=== PATIENT | female | born 1970 | race Caucasian/White ===

== ENCOUNTER 2017-01-04 18:02 | Emergency (ER) | payer OTHER ==
[~2017-01-04] VITALS: Ht 162.6 cm; Wt 45.0 kg
[~2017-01-04 18:02] MED LIST: DICL50TA3 PO; OMEP20TA PO; ROBA500T PO; SUCR1TAB PO
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
[2017-01-04 20:22] VITALS: BP 114/75; PULSE 55; RESP 16; TEMP 98.7; O2SAT 98
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
[2017-01-04] MEDS ORDERED: CYCL1TAB29 PO (20:40)
[2017-01-04] MEDS ORDERED: DICL75TA PO (20:40)
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
[2017-01-04] MEDS ORDERED: NAPROXEN 500 MG TAB PO ONE (20:45)
[2017-01-04] MEDS ORDERED: CYCLOBENZAPRINE HCL 10 MG TAB PO ONE (20:45)
== END 2017-01-04 21:02 | disposition home or self-care (01) ==
LOC: NEPD 18:02
DX: S40.012A Contusion of left shoulder, initial encounter (principal); S80.01XA Contusion of right knee, initial encounter; R51 Headache; M25.512 Pain in left shoulder; M54.5 Low back pain; M25.561 Pain in right knee; E78.00 Pure hypercholesterolemia, unspecified; F17.210 Nicotine dependence, cigarettes, uncomplicated; V43.52XA Car driver injured in collision with other type car in traffic accident, initial encounter; Y93.89 Activity, other specified; Y92.410 Unspecified street and highway as the place of occurrence of the external cause; Y99.8 Other external cause status
CPT/HCPCS: 70450; 72125; 73030; 73564; 99285

== ENCOUNTER 2018-02-10 11:19 | Observation (INO) ==
[2018-02-10] MEDS ORDERED: Morphine Inj 4 MG/ML Vial IV.PUSH ONE ×2 (11:46→16:18)
[2018-02-10] MEDS ORDERED: Sod Chloride 0.9% Inj 1,000 ML IV.SIG ONE (11:46)
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
[2018-02-10 12:41] LABS: Baso % (Auto) 0.2 % (0.0-2.0); Eos # (Auto) 0.1 th/mm3 (0.0-0.4); Hematocrit 38.4 % (35.0-46.0); Hemoglobin 12.7 gm/dL (11.6-15.3); Lymph # (Auto) 1.9 th/mm3 (1.0-4.8); Mean Corpuscular Hemoglobin 29.4 pg (27.0-34.0); Mean Corpuscular Volume 89.1 fL (80.0-100.0); Mean Platelet Volume 7.7 fL (7.0-11.0); Mono # (Auto) 1.1 th/mm3 (0.0-0.9); Mono % (Auto) 7.1 % (0.0-8.0); Neut # (Auto) 11.8 th/mm3 (1.8-7.7); Neut % (Auto) 78.7 % (16.0-70.0); Platelet Count 384 th/mm3 (150-450); Red Blood Count 4.31 mil/mm3 (4.00-5.30); Red Cell Distribution Width 14.3 % (11.6-17.2); White Blood Count 14.9 th/mm3 (4.0-11.0)
[2018-02-10 12:47] LABS: Activated Partial Thrombo Time 24.9 sec (24.3-30.1); Prothrombin Time 9.9 sec (9.8-11.6)
[2018-02-10 12:53] LABS: Alanine Aminotransferase 23 U/L (10-53)
[2018-02-10 12:56] LABS: Alkaline Phosphatase 51 U/L (45-117); Total Protein 7.2 g/dL (6.4-8.2)
[2018-02-10 13:03] LABS: Albumin 3.6 g/dL (3.4-5.0); Anion Gap 6 meq/L (5-15); Aspartate Aminotransferase 19 U/L (15-37); Blood Urea Nitrogen 19 mg/dL (7-18); Calcium 8.8 mg/dL (8.5-10.1); Carbon Dioxide 28.6 meq/L (21.0-32.0); Chloride 106 meq/L (98-107); Glomerular Filtration Rate 82 mL/min (>89); Glucose,Random 127 mg/dL (74-106); Potassium 3.6 meq/L (3.5-5.1); Sodium 141 meq/L (136-145)
[2018-02-10 13:15] LABS: Amorphous Sediment,Urine Moderate /hpf; Bilirubin,Urine Negative (Negative); Clarity,Urine Turbid (Clear); Color,Urine Yellow (Yellw/Straw); Glucose,Urine (UA) Negative (Negative); Leukocyte Esterase,Urine Negative (Negative); Mucus,Urine Few /lpf (Occasional); Nitrite,Urine Negative (Negative); Squamous Epithelial Cell,Urine 9 /hpf (0-5)
--- NOTE | 2018-02-10 13:55 | MR ---
EXAM DATE: 02/10/2018 1:45 PM EDT AGE/SEX: 47 years / Female INDICATIONS: . Shooting pain left leg with numbness. CLINICAL DATA: This is the patient's initial encounter. Patient reports that signs and symptoms have been present for 2 weeks and indicates a pain score of 7/10. MEDICAL/SURGICAL HISTORY: None. None. COMPARISON: [facility] [place], CT CERVICAL SPINE W/O CONTRAST, 01/04/2017. . TECHNIQUE: Multiplanar, multisequence MRI of the lumbar spine was performed without contrast. Patie nt was scanned in a sitting position; neutral, flexion, and extension scans were performed in the sa gittal plane. FINDINGS: There is disc space narrowing at L5-S1 and L4-5. The lumbar vertebral bodies are normal in height and marrow intensity. T12-L1: The thecal sac has a normal diameter. No evidence of disc bulge or protrusion. The neural foramina are patent bilaterally. L1-L2: The thecal sac has a normal diameter. No evidence of disc bulge or protrusion. The neural foramina are patent bilaterally. L2-L3: Minimal diffuse disc bulge is noted. No spinal stenosis or focal disc herniation is noted. N o neuroforaminal narrowing is noted. L3-L4: The thecal sac has a normal diameter. No evidence of disc bulge or protrusion. The neural foramina are patent bilaterally. L4-L5: There is a large broad-based central to slightly left paracentral focal disc herniation whic h results in severe spinal stenosis at this level. Small extruded fragments extending superiorly and inferiorly. There is significant impingement upon the left lateral recess and probable impingement up on the left L5 nerve root. Mild facet joint hypertrophy is noted bilaterally. Mild bilateral foramina l narrowing is noted. L5-S1: Mild diffuse disc osteophyte complex and mild facet joint hypertrophy bilaterally result in mild bilateral foraminal narrowing. No spinal stenosis or focal disc herniation is noted. CONCLUSION: 1. Large broad-based central to slightly left paracentral focal disc herniation which results in sev ere spinal stenosis at this level. Small extruded fragments extending superiorly and inferiorly. Ther e is significant impingement upon the left lateral recess and probable impingement upon the left L5 n erve root. 2. Mild bilateral foraminal narrowing at L4-5 and L5-S1. 3. Degenerative disc disease at L4-5 and L5-S1 and to a lesser extent at L2-3. Electronically signed by: Daryl Nielsen MD 02/10/2018 1:54 PM EDT
[2018-02-10] MEDS ORDERED: Acetaminophen 325 MG Tablet PO PRN (16:41)
[2018-02-10] MEDS ORDERED: Naloxone Inj 0.4 MG/ML Vial IV.PUSH PRN ×2 (16:41→18:16)
[2018-02-10] MEDS ORDERED: Bisacodyl 10 MG Supp RECTAL PRN (16:41)
--- NOTE | 2018-02-10 16:46 | P.HP ---
History of Present Illness Service: Hospitalist Primary Care Physician: UNKNOWN Chief Complaint: Back pain History of Present Illness: Patient is a 47-year-old female who presents the emergency room with complaints of back pain. Her only significant medical history is bipolar disorder. Patient reports that she hurt her back on January 28 while moving furniture in a house. She was seen in the emergency room on February 01, 2018. She went to her primary care provider due to the fact that the pain was not improving and he directed her to the emergency room. She reports increasing level pain over the past 4 days as well as numbness in her left leg and foot. She also had an episode of urinary incontinence today - she has never had incontinence in the past. She was aware that she needed to empty her bladder however she did not make it to the bathroom in time. No other episodes of incontinence. Denies any chest pain or shortness of breath. Denies any nausea vomiting or diarrhea. She is hungry and would like to have something to eat. Reports other than the one episode of incontinence she has had normal urination and normal bowel movements. Review of Systems All other systems reviewed negative except as stated in HPI PMFSH - History History Provided By: Patient, Medical Record - Medical History Medical History: Medical History (Last Reviewed 02/10/18 @ 18:23 by KAMI Jones) Bipolar disorder - Surgical History Surgical History: Surgical History (Last Reviewed 02/10/18 @ 18:23 by KAMI Jones) H/O tubal ligation - Family History Family History: Family History (Last Reviewed 02/10/18 @ 18:23 by KAMI Jones) Other Patient denies significant medical history - Tobacco History Second Hand Smoke Exposure: Yes Tobacco Use In Past 30 Days: Yes Smoking Status: Current every day smoker Tobacco Type: Cigarettes - Alcohol History How Often Do You Have a Drink Containing Alcohol: Never - Travel History Recent Travel in the [place] Within the Last 8 Weeks: No Recent Travel Out of the Country Within the Last 8 Weeks: No - Immunization History Tetanus Immunization: Unsure Medications and Allergies Active Medications: Active Medications Sodium Chloride (Ns Flush) 2 ml IV.FLUSH PRN PRN PRN Reason: FLUSH AFTER USING IV ACCESS Allergies Allergy/AdvReac Type Severity Reaction Status Date / Time No Known Allergies Allergy Uncoded 01/04/17 20:22 Home Medications Medication Instructions Recorded Confirmed Type buspirone 50 mg PO TID 02/10/18 02/10/18 History doxepin 50 mg PO HS 02/10/18 02/10/18 History lamotrigine [Lamictal ODT] 50 mg PO HS 02/10/18 02/10/18 History lithium carbonate 150 mg PO BID 02/10/18 02/10/18 History trazodone 100 mg PO HS 02/10/18 02/10/18 History Exam Vital signs: Vital Signs 02/10/18 11:30 02/10/18 13:00 Temperature 98 F Pulse Rate 84 55 L Respiratory Rate 20 15 Blood Pressure 115/67 118/56 L Pulse Oximetry 97 97 Intake & Output 02/09/18 02/10/18 02/10/18 18:59 06:59 18:59 Weight 45.359 kg Narrative: GENERAL: Well-nourished, well-developed adult female in no obvious distress. SKIN: Warm and dry. HEAD: Atraumatic. Normocephalic. CARDIOVASCULAR: Regular rate and rhythm. RESPIRATORY: No accessory muscle use. Clear to auscultation. Breath sounds equal bilaterally. GASTROINTESTINAL: Abdomen soft, non-tender, distended. Positive bowel sounds. MUSCULOSKELETAL: Extremities without clubbing, cyanosis, or edema. No obvious deformities. Left leg has reduced sensation along [place] and on the sole of foot. Well-perfused. Tenderness across lumbar spine; obvious pain with movement. NEUROLOGICAL: Awake and alert. No obvious cranial nerve deficits. Motor grossly within normal limits. Normal speech. PSYCHIATRIC: Appropriate mood and affect; insight and judgment good. Results - Labs CBC & Chem 7: 02/10/18 12:30 02/10/18 12:30 Labs: Laboratory Results - last 24 hr 02/10/18 02/10/18 02/10/18 12:30 12:30 12:30 WBC 14.9 H RBC 4.31 Hgb 12.7 Hct 38.4 MCV 89.1 MCH 29.4 MCHC 33.0 RDW 14.3 Plt Count 384 MPV 7.7 Prelim Diff (Auto) [place] Neut % (Auto) 78.7 H Lymph % (Auto) 13.0 [place] % (Auto) 7.1 Eos % (Auto) 1.0 Baso % (Auto) 0.2 Neut # (Auto) 11.8 H Lymph # (Auto) 1.9 [place] # (Auto) 1.1 H Eos # (Auto) 0.1 Baso # (Auto) 0.0 WBC Differential . Differential Comment Auto diff final PT 9.9 INR 1.0 APTT 24.9 Sodium 141 Potassium 3.6 Chloride 106 Carbon Dioxide 28.6 Anion Gap 6 BUN 19 H Creatinine 0.76 Estimated GFR 82 L Random Glucose 127 H Calcium 8.8 Total Bilirubin 0.2 AST 19 ALT 23 Alkaline Phosphatase 51 Total Protein 7.2 Albumin 3.6 Urine Color Urine Clarity Urine pH Ur Specific [place] Urine Protein Urine Glucose (UA) Urine Ketones Urine Occult Blood Urine Nitrate Urine Bilirubin Urine Urobilinogen Ur Leukocyte Esterase Urine RBC Urine WBC Ur Squamous Epith Cells Amorphous Sediment Urine Mucus Micro UA Comment Urine Culture Comments 02/10/18 12:55 WBC RBC Hgb Hct MCV MCH MCHC RDW Plt Count MPV Prelim Diff (Auto) Neut % (Auto) Lymph % (Auto) [place] % (Auto) Eos % (Auto) Baso % (Auto) Neut # (Auto) Lymph # (Auto) [place] # (Auto) Eos # (Auto) Baso # (Auto) WBC Differential Differential Comment PT INR APTT Sodium Potassium Chloride Carbon Dioxide Anion Gap BUN Creatinine Estimated GFR Random Glucose Calcium Total Bilirubin AST ALT Alkaline Phosphatase Total Protein Albumin Urine Color Yellow Urine Clarity Turbid H Urine pH 6.0 Ur Specific [place] 1.020 Urine Protein Negative Urine Glucose (UA) Negative Urine Ketones Negative Urine Occult Blood Negative Urine Nitrate Negative Urine Bilirubin Negative Urine Urobilinogen Less than 2 Ur Leukocyte Esterase Negative Urine RBC 4 H Urine WBC 4 Ur Squamous Epith Cells 9 Amorphous Sediment Moderate H Urine Mucus Few H Micro UA Comment Culture not ind Urine Culture Comments Culture not ind - Imaging Impressions Lumbar Spine MRI 02/10/18 11:45 CONCLUSION: 1. Large broad-based central to slightly left paracentral focal disc herniation which results in severe spinal stenosis at this level. Small extruded fragments extending superiorly and inferiorly. There is significant impingement upon the left lateral recess and probable impingement upon the left L5 nerve root. 2. Mild bilateral foraminal narrowing at L4-5 and L5-S1. 3. Degenerative disc disease at L4-5 and L5-S1 and to a lesser extent at L2-3. Caprini VTE Risk Assessment Caprini VTE Risk Assessment: No/Low Risk (score <= 1) Caprini Risk Assessment Model: Point Value = 1 Point Value = 2 Point Value = 3 Point Value = 5 Age 41-60 Minor surgery BMI > 25 kg/m2 Swollen legs Varicose veins or History of unexplained or recurrent spontaneous Oral contraceptives or hormone replacement Sepsis (< 1 month) Serious lung disease, including pneumonia (< 1 month) Abnormal pulmonary function Acute myocardial infarction Congestive heart failure (< 1 month) History of inflammatory bowel disease Medical patient at bed rest Age 61-74 Arthroscopic surgery Major open surgery (> 45 min) Laparoscopic surgery (> 45 min) Malignancy Confined to bed (> 72 hours) Immobilizing plaster cast Central venous access Age >= 75 History of VTE Family history of VTE Factor V Leiden Prothrombin [id number] Lupus anticoagulant Anticardiolipin antibodies Elevated serum homocysteine Heparin-induced thrombocytopenia Other congenital or acquired thrombophilia Stroke (< 1 month) Elective arthroplasty Hip, pelvis, or leg fracture Acute spinal cord injury (< 1 month) Prophylaxis Regimen: Total Risk Factor Score Risk Level Prophylaxis Regimen 0-1 Low Early ambulation 2 Moderate Order ONE of the following: *Sequential Compression Device (SCD) *Heparin 5000 units SQ BID 3-4 Higher Order ONE of the following medications: *Heparin 5000 units SQ TID *Enoxaparin/Lovenox 40 mg SQ daily (WT < 150 kg, CrCl > 30 mL/min) *Enoxaparin/Lovenox 30 mg SQ daily (WT < 150 kg, CrCl > 10-29 mL/min) *Enoxaparin/Lovenox 30 mg SQ BID (WT < 150 kg, CrCl > 30 mL/min) AND/OR *Sequential Compression Device (SCD) 5 or more Highest Order ONE of the following medications: *Heparin 5000 units SQ TID (Preferred with Epidurals) *Enoxaparin/Lovenox 40 mg SQ daily (WT < 150 kg, CrCl > 30 mL/min) *Enoxaparin/Lovenox 30 mg SQ daily (WT < 150 kg, CrCl > 10-29 mL/min) *Enoxaparin/Lovenox 30 mg SQ BID (WT < 150 kg, CrCl > 30 mL/min) AND *Sequential Compression Device (SCD) Assessment and Plan - Plan 47-year-old white female with a past medical history of bipolar disorder. She presented to the emergency room with a complaint of back pain on 02/10. Initially hurt her back 01/28 while moving furniture; failed to improve and her primary care directed her to ED. Reports increasing numbness in her left leg and foot over the past 4 days and significant low back pain. Ruptured disc and spinal stenosis -Neurosurgery has been consulted; appreciate assistance -Pain management [place] and morphine for breakthrough; avoid oversedation Bipolar disease -Restart home medications once confirmed with the patient's pharmacy DVT prophylaxis: Patient is ambulatory Discussed with: Patient, nurse and Dr. Alvarado
[2018-02-10] MEDS ORDERED: Sod Chloride 0.9% Inj 1,000 ML IV.CONT SCH (17:00)
--- NOTE | 2018-02-10 17:49 | XR ---
EXAM DATE: 02/10/2018 5:43 PM EDT AGE/SEX: 47 years / Female INDICATIONS: Dyspnea. CLINICAL DATA: This is the patient's initial encounter. Patient reports that signs and symptoms have been present for 1 day and indicates a pain score of 0/10. MEDICAL/SURGICAL HISTORY: None. None. COMPARISON: [facility] – [place], CHEST PA & LAT, 07/08/2016. . FINDINGS: A single AP view of the chest demonstrates the lungs to be symmetrically aerated without evidence of mass, infiltrate or effusion. The cardiomediastinal contours are unremarkable. Osseous structures a re intact. CONCLUSION: No acute cardiopulmonary disease. Electronically signed by: Dillon Coyne MD 02/10/2018 5:48 PM EDT
--- NOTE | 2018-02-10 18:03 | P.CONNS ---
History of Present Illness Service: neurosurgery Primary Care Provider: UNKNOWN History of Present Illness: This is a 47-year-old female who presents the emergency room with complaints of back pain. She reports that she hurt her back on January 28 while moving furniture in a house. Reports that she was seen in the emergency room on February 01, 2018, reports that the pain never got any better. Patient followed up with her primary care doctor today at [facility], and was sent to the ER for evaluation. Reports that for the past 4 days, she has had numbness to her left foot. She also had an episode of urinary incontinence today Denies fever/ chills. Denies n/v. Denies history of IVDA PMFSH - History History Provided By: Patient - Medical History Medical History: Medical History (Last Reviewed 02/10/18 @ 11:59 by Fara Sanchez) Bipolar disorder - Tobacco History Second Hand Smoke Exposure: Yes Tobacco Use In Past 30 Days: Yes Smoking Status: Current every day smoker Tobacco Type: Cigarettes - Alcohol History How Often Do You Have a Drink Containing Alcohol: Never - Travel History Recent Travel in the [place] Within the Last 8 Weeks: No Recent Travel Out of the Country Within the Last 8 Weeks: No - Immunization History Tetanus Immunization: Unsure Medications and Allergies Active Medications: Active Medications Acetaminophen (Tylenol) 650 mg PO Q4H PRN PRN Reason: Temp > 100.4 Al Hydroxide/Mg Hydroxide (Milk Of Magnesia Liq) 30 ml PO Q12H PRN PRN Reason: Mild Constipation Bisacodyl (Dulcolax Supp) 10 mg RECTAL DAILY PRN PRN Reason: SEVERE CONSITIPATION Sodium Chloride (Ns Inj) 1,000 mls @ 50 mls/hr IV.CONT .Q20H [facility] Lactulose (Lactulose Liq) 30 ml PO DAILY PRN PRN Reason: SEVERE CONSITIPATION Naloxone HCl (Narcan Inj) 0.4 mg IV.PUSH UNSCH PRN PRN Reason: SEE LABEL COMMENTS Ondansetron HCl (Zofran Odt) 4 mg PO Q6H PRN PRN Reason: NAUSEA OR VOMITING Senna/Docusate Sodium (Jia-Colace) 1 tab PO BID WAY[facility] Sennosides (Senokot) 17.2 mg PO Q12H PRN PRN Reason: Moderate Constipation Sodium Chloride (Ns Flush) 2 ml IV.FLUSH PRN PRN PRN Reason: FLUSH AFTER USING IV ACCESS Allergies Allergy/AdvReac Type Severity Reaction Status Date / Time No Known Allergies Allergy Uncoded 01/04/17 20:22 Home Medications Medication Instructions Recorded Confirmed Type buspirone 50 mg PO TID 02/10/18 02/10/18 History doxepin 50 mg PO HS 02/10/18 02/10/18 History lamotrigine [Lamictal ODT] 50 mg PO HS 02/10/18 02/10/18 History lithium carbonate 150 mg PO BID 02/10/18 02/10/18 History trazodone 100 mg PO HS 02/10/18 02/10/18 History Exam Vital signs: Vital Signs 02/10/18 11:30 02/10/18 13:00 02/10/18 17:00 Temperature 98 F Pulse Rate 84 55 L 62 Respiratory Rate 20 15 15 Blood Pressure 115/67 118/56 L 112/77 Pulse Oximetry 97 97 98 Intake & Output 02/09/18 02/10/18 02/10/18 18:59 06:59 18:59 Weight 45.359 kg Results - Laboratory Findings CBC and BMP: 02/10/18 12:30 02/10/18 12:30 Abnormal lab findings: Abnormal Labs 02/10/18 02/10/18 02/10/18 12:30 12:30 12:55 WBC 14.9 H Neut % (Auto) 78.7 H Neut # (Auto) 11.8 H [place] # (Auto) 1.1 H BUN 19 H Estimated GFR 82 L Random Glucose 127 H Urine Clarity Turbid H Urine RBC 4 H Amorphous Sediment Moderate H Urine Mucus Few H Assessment and Plan - Plan I reviewed her clinical and radiological studies including Chest X-Ray 02/10/18 00:00 CONCLUSION: No acute cardiopulmonary disease. Lumbar Spine MRI 02/10/18 11:45 CONCLUSION: 1. Large broad-based central to slightly left paracentral focal disc herniation which results in severe spinal stenosis at this level. Small extruded fragments extending superiorly and inferiorly. There is significant impingement upon the left lateral recess and probable impingement upon the left L5 nerve root. 2. Mild bilateral foraminal narrowing at L4-5 and L5-S1. 3. Degenerative disc disease at L4-5 and L5-S1 and to a lesser extent at L2-3.
[2018-02-10] MEDS: Senna/Docusate Sodium 8.6/50 MG Tablet PO SCH (21:13)
[2018-02-10] MEDS ORDERED: HYDROmorphone PF Inj 2 MG/ML Vial IV.PUSH ONE (23:36)
[2018-02-11] MEDS: Morphine Inj 4 MG/ML Vial IV.PUSH PRN ×3 (08:44→20:16)
[2018-02-11] MEDS: Senna/Docusate Sodium 8.6/50 MG Tablet PO SCH ×2 (08:44→20:17)
[2018-02-11 09:41] LABS: Baso % (Auto) 0.1 % (0.0-2.0); Eos # (Auto) 0.3 th/mm3 (0.0-0.4); Eos % (Auto) 2.6 % (0.0-4.0); Hematocrit 34.1 % (35.0-46.0); Hemoglobin 11.3 gm/dL (11.6-15.3); Lymph # (Auto) 4.5 th/mm3 (1.0-4.8); Lymph % (Auto) 44.2 % (9.0-44.0); Mean Corpuscular HGB Conc 33.2 % (32.0-36.0); Mean Corpuscular Hemoglobin 29.8 pg (27.0-34.0); Mean Corpuscular Volume 89.7 fL (80.0-100.0); Mean Platelet Volume 7.9 fL (7.0-11.0); Mono # (Auto) 0.8 th/mm3 (0.0-0.9); Mono % (Auto) 7.6 % (0.0-8.0); Neut # (Auto) 4.6 th/mm3 (1.8-7.7); Neut % (Auto) 45.5 % (16.0-70.0); Platelet Count 311 th/mm3 (150-450); Red Cell Distribution Width 14.3 % (11.6-17.2); White Blood Count 10.1 th/mm3 (4.0-11.0)
[2018-02-11 10:07] LABS: Alanine Aminotransferase 21 U/L (10-53); Alkaline Phosphatase 42 U/L (45-117); Anion Gap 6 meq/L (5-15); Aspartate Aminotransferase 11 U/L (15-37); Blood Urea Nitrogen 16 mg/dL (7-18); Calcium 8.2 mg/dL (8.5-10.1); Carbon Dioxide 26.8 meq/L (21.0-32.0); Chloride 109 meq/L (98-107); Glomerular Filtration Rate 84 mL/min (>89); Glucose,Random 78 mg/dL (74-106); Sodium 142 meq/L (136-145); Total Protein 5.8 g/dL (6.4-8.2)
[2018-02-11] MEDS: Famotidine 20 MG Tablet PO SCH ×2 (12:26→23:04)
[2018-02-11] MEDS ORDERED: ceFAZolin 2 GM Premix Inj 2 GM/50 ML PIGGYBACK IV.SIG PRN (12:57)
[2018-02-11] MEDS ORDERED: Chlorhexidine 4% Topical 120 APPLIC/120 ML Bottle TOPICAL ONE (13:07)
--- NOTE | 2018-02-11 16:17 | P.PNNS ---
Subjective Interval history: 02/11: no changes in lumbar radicular pain down left leg. <Zandra Chong - Last Filed: 02/12/18 08:42> Physical Exam Vital signs: Vital Signs 02/10/18 19:52 02/10/18 20:00 02/11/18 00:00 Temperature 98.0 F 98.0 F Pulse Rate 60 55 L Respiratory Rate 15 16 15 Blood Pressure 103/58 L 94/50 L Pulse Oximetry 98 97 02/11/18 00:33 02/11/18 01:15 02/11/18 04:00 Temperature 98.1 F Pulse Rate 48 L Respiratory Rate 15 16 15 Blood Pressure 80/49 L Pulse Oximetry 99 02/11/18 04:05 02/11/18 08:00 02/11/18 12:00 Temperature 98.1 F 98.3 F Pulse Rate 55 L 65 Respiratory Rate 16 16 16 Blood Pressure 97/53 L 100/59 L Pulse Oximetry 98 98 02/11/18 15:53 Temperature 98.0 F Pulse Rate 50 L Respiratory Rate 16 Blood Pressure 93/51 L Pulse Oximetry 98 Intake & Output 02/10/18 02/11/18 02/11/18 18:59 06:59 18:59 Intake Total 1000 / 1000 500 / 500 500 / 500 Balance 1000 / 1000 500 / 500 500 / 500 Weight 45.359 kg Intake: IV 1000 / 1000 500 / 500 NS Inj 1,000 ML @ 50 mls/hr IV. 500 / 500 CONT .Q20H [facility] Rx#:[id number] Oral 500 / 500 Other: # Voids 1 <García Pina - Last Filed: 02/11/18 17:19> Vital signs: Vital Signs 02/10/18 17:00 02/10/18 19:52 02/10/18 20:00 Temperature 98.0 F Pulse Rate 62 60 Respiratory Rate 15 15 16 Blood Pressure 112/77 103/58 L Pulse Oximetry 98 98 02/11/18 00:00 02/11/18 00:33 02/11/18 01:15 Temperature 98.0 F Pulse Rate 55 L Respiratory Rate 15 15 16 Blood Pressure 94/50 L Pulse Oximetry 97 02/11/18 04:00 02/11/18 04:05 02/11/18 08:00 Temperature 98.1 F 98.1 F Pulse Rate 48 L 55 L Respiratory Rate 15 16 16 Blood Pressure 80/49 L 97/53 L Pulse Oximetry 99 98 02/11/18 12:00 02/11/18 15:53 Temperature 98.3 F 98.0 F Pulse Rate 65 50 L Respiratory Rate 16 16 Blood Pressure 100/59 L 93/51 L Pulse Oximetry 98 98 Intake & Output 02/10/18 02/11/18 02/11/18 18:59 06:59 18:59 Intake Total 1000 / 1000 500 / 500 500 / 500 Balance 1000 / 1000 500 / 500 500 / 500 Weight 45.359 kg Intake: IV 1000 / 1000 500 / 500 NS Inj 1,000 ML @ 50 mls/hr IV. 500 / 500 CONT .Q20H [facility] Rx#:[id number] Oral 500 / 500 Other: # Voids 1 Narrative: GENERAL: Well-nourished, in no apparent distress. HEENT: Normocephalic. Atraumatic. Nonicteric sclera. No nasal drainage. CARDIOVASCULAR: Regular rate and rhythm. RESPIRATORY: No accessory muscle use. No wheezes, clear bilaterally. MUSCULOSKELETAL: No obvious deformities. NEUROLOGICAL: Awake and alert. Pupils equal. Facial motor symmetric. Moves all major muscle groups of lower extremities with good strength. SKIN: Warm, dry. <Zandra Chong - Last Filed: 02/12/18 08:42> Assessment and Plan - Assessment (1) Lumbar disc herniation Code(s): M51.26 - Other intervertebral disc displacement, lumbar region Status : Acute - Plan Ihave discussed with her the [id number] details of the surgical procedure, its indications, alternatives, risks, and potential complications. Risks and potential complications include, but are not limited to, infection, blood loss, CSF leak, partial or complete loss of sight in one or both eyes, paresis, paralysis, permanent pain or difficulty swallowing, loss of bowel or bladder function, complications from anesthesia, blood clot, stroke, myocardial infarction, or even . The possibility of nonoperative treatment has been offered. <García Pina - Last Filed: 02/11/18 17:19> - Assessment (1) Lumbar disc herniation Code(s): M51.26 - Other intervertebral disc displacement, lumbar region Status : Acute - Plan Lumbar Spine MRI 02/10/18 11:45 CONCLUSION: 1. Large broad-based central to slightly left paracentral focal disc herniation which results in severe spinal stenosis at this level. Small extruded fragments extending superiorly and inferiorly. There is significant impingement upon the left lateral recess and probable impingement upon the left L5 nerve root. 2. Mild bilateral foraminal narrowing at L4-5 and L5-S1. 3. Degenerative disc disease at L4-5 and L5-S1 and to a lesser extent at L2-3. Plan: Dr. Pina plans of L4-5 laminectomy with microdiscectomy tomorrow NPO tonight at midnight [facility] tonight consents in chart <Zandra Chong - Last Filed: 02/12/18 08:42>
--- NOTE | 2018-02-11 17:27 | P.PN ---
Subjective Interval history: Follow up for lumbar disc herniation, back pain. The patient reports continued severe low back pain with radiation into the left lumbar region and down the hamstring all the way to plantar foot, with associated numbness/tingling of the left foot. Denies any further episodes of incontinence. Denies fevers/chills. She is looking forward to surgery tomorrow. Physical Exam Vital signs: Vital Signs 02/10/18 19:52 02/10/18 20:00 02/11/18 00:00 Temperature 98.0 F 98.0 F Pulse Rate 60 55 L Respiratory Rate 15 16 15 Blood Pressure 103/58 L 94/50 L Pulse Oximetry 98 97 02/11/18 00:33 02/11/18 01:15 02/11/18 04:00 Temperature 98.1 F Pulse Rate 48 L Respiratory Rate 15 16 15 Blood Pressure 80/49 L Pulse Oximetry 99 02/11/18 04:05 02/11/18 08:00 02/11/18 12:00 Temperature 98.1 F 98.3 F Pulse Rate 55 L 65 Respiratory Rate 16 16 16 Blood Pressure 97/53 L 100/59 L Pulse Oximetry 98 98 02/11/18 15:53 Temperature 98.0 F Pulse Rate 50 L Respiratory Rate 16 Blood Pressure 93/51 L Pulse Oximetry 98 Intake & Output 02/10/18 02/11/18 02/11/18 18:59 06:59 18:59 Intake Total 1000 / 1000 500 / 500 500 / 500 Balance 1000 / 1000 500 / 500 500 / 500 Weight 45.359 kg Intake: IV 1000 / 1000 500 / 500 NS Inj 1,000 ML @ 50 mls/hr IV. 500 / 500 CONT .Q20H [facility] Rx#:[id number] Oral 500 / 500 Other: # Voids 1 Narrative: GENERAL: Well-nourished, well-developed middle aged female patient in [facility]. SKIN: Warm and dry. No rash. HEENT: Normocephalic. Atraumatic. Pupils equal and round. Mucous membranes pink and moist. CARDIOVASCULAR: Regular rate and rhythm. No murmur appreciated. RESPIRATORY: No accessory muscle use. Clear to auscultation. Breath sounds equal bilaterally. GASTROINTESTINAL: Abdomen soft, non-tender, nondistended. Normoactive bowel sounds x4. MUSCULOSKELETAL: No obvious deformities. Extremities without clubbing, cyanosis , or edema. Distal lumbar spine with tenderness to palpation at L4-5 region and at left paraspinous muscles. NEUROLOGICAL: Awake and alert. No obvious cranial nerve deficits. Motor grossly within normal limits. 5/5 strength of bilateral upper and lower extremities. Distal lower extremity sensation equal and intact. Normal speech. PSYCHIATRIC: Appropriate mood and affect; insight and judgment normal. Results - Labs CBC & Chem 7: 02/11/18 08:35 02/11/18 08:35 Laboratory Results - last 24 hr 02/10/18 02/11/18 02/11/18 19:20 08:35 08:35 WBC 10.1 RBC 3.80 L Hgb 11.3 L Hct 34.1 L MCV 89.7 MCH 29.8 MCHC 33.2 RDW 14.3 Plt Count 311 MPV 7.9 Neut % (Auto) 45.5 Lymph % (Auto) 44.2 H [place] % (Auto) 7.6 Eos % (Auto) 2.6 Baso % (Auto) 0.1 Neut # (Auto) 4.6 Lymph # (Auto) 4.5 [place] # (Auto) 0.8 Eos # (Auto) 0.3 Baso # (Auto) 0.0 WBC Differential . Differential Comment Auto diff final Sodium 142 Potassium 4.0 Chloride 109 H Carbon Dioxide 26.8 Anion Gap 6 BUN 16 Creatinine 0.74 Estimated GFR 84 L Random Glucose 78 Calcium 8.2 L Total Bilirubin 0.3 AST 11 L ALT 21 Alkaline Phosphatase 42 L Total Protein 5.8 L D Albumin 3.0 L D [place] Less than 0.1 L - Imaging Impressions Chest X-Ray 02/10/18 00:00 CONCLUSION: No acute cardiopulmonary disease. Assessment and Plan - Plan 47-year-old white female with a past medical history of bipolar disorder presents on 02/10 with worsening low back pain since sustaining an injury moving furniture on 01/28. Lumbar Disc Herniation with Spinal Stenosis: acute, with intractable pain -Lumbar Spine MRI reviewed, shows Large broad-based central to slightly left paracentral focal disc herniation which results in severe spinal stenosis at this level; Small extruded fragments extending superiorly and inferiorly; There is significant impingement upon the left lateral recess and probable impingement upon the left L5 nerve root; Mild bilateral foraminal narrowing at L4-5 and L5-S1. -Pain control with [place] prn and IV morphine prn breakthrough pain, with bowel regimen -Heating pad -Neurosurgery consulted, plans for surgical intervention on 02/12 -Physical therapy consulted Bipolar disease -Continue patient's home medications including buspirone, doxepin, lamictal, lithium, trazodone Tobacco use: chronic -counseled on cessation -continue nicotine patch DVT prophylaxis: Patient is ambulatory; avoid chemoprophylaxis with upcoming surgery Discharge Planning: Going to OR tomorrow. Further disposition to follow.
[2018-02-11] MEDS: lamoTRIgine 25 MG TABLET PO SCH (20:17)
[2018-02-11] MEDS: traZODone 100 MG Tablet PO SCH (21:37)
[2018-02-12] MEDS: Morphine Inj 4 MG/ML Vial IV.PUSH PRN (01:59)
[2018-02-12] MEDS ORDERED: Metoprolol Tartrate 25 MG Tablet PO SCH (02:45)
[2018-02-12] MEDS ORDERED: Chlorhexidine Gluconate 2% 1 Pack (2 Cloths) TOPICAL SCH (02:45)
[2018-02-12] MEDS ORDERED: Sodium Chlor 0.9% Inj 500 ML IV.SIG SCH (03:00)
[2018-02-12] MEDS ORDERED: Thrombin Topical Soln 5,000 UNIT Vial TOPICAL ONE (07:01)
[2018-02-12] MEDS ORDERED: Gelatin Size 100 Topical Foam ONE (07:01)
[2018-02-12] MEDS ORDERED: Bupivacaine/Epinephrine 0.5% Inj 50 ML Vial ONE (07:01)
[2018-02-12] MEDS: Senna/Docusate Sodium 8.6/50 MG Tablet PO SCH ×2 (08:04→22:25)
[2018-02-12] MEDS: Famotidine 20 MG Tablet PO SCH ×2 (08:04→22:24)
[2018-02-12] MEDS ORDERED: fentaNYL Citrate Inj 250 MCG/5 ML Ampul ONE (08:34)
--- NOTE | 2018-02-12 08:46 | P.PN ---
Subjective Interval history: Follow up for lumbar disc herniation, intractable back pain. The patient reports continued constant low back pain with radiation down the left leg, associated with numbness/tingling. She states she is unable to put any pressure on the left leg without shooting pains. Denies fevers/chills. Denies any other medical complaints at this time. Going to OR today. Physical Exam Vital signs: Vital Signs 02/11/18 12:00 02/11/18 15:53 02/11/18 20:00 Temperature 98.3 F 98.0 F 98.3 F Pulse Rate 65 50 L 74 Respiratory Rate 16 16 16 Blood Pressure 100/59 L 93/51 L 91/55 L Pulse Oximetry 98 98 98 02/11/18 21:27 02/12/18 00:00 02/12/18 01:50 Temperature 98.1 F 97.8 F Pulse Rate 71 53 L Respiratory Rate 17 14 15 Blood Pressure 98/53 L 94/56 L Pulse Oximetry 96 98 02/12/18 04:00 02/12/18 06:27 02/12/18 07:35 Temperature 98.0 F 98.5 F Pulse Rate 69 18 L Respiratory Rate 14 16 Blood Pressure 95/54 L 78/50 L Pulse Oximetry 96 97 02/12/18 08:00 Temperature Pulse Rate 62 Respiratory Rate Blood Pressure 80/42 L Pulse Oximetry Intake & Output 02/11/18 02/12/18 02/12/18 18:59 06:59 18:59 Intake Total 500 / 500 Balance 500 / 500 Weight 45.359 kg Intake: Oral 500 / 500 Other: # Voids 1 Narrative: GENERAL: Well-nourished, well-developed middle aged female patient in [facility]. SKIN: Warm and dry. No rash. HEENT: Normocephalic. Atraumatic. Pupils equal and round. Mucous membranes pink and moist. CARDIOVASCULAR: Regular rate and rhythm. No murmur appreciated. RESPIRATORY: No accessory muscle use. Clear to auscultation. Breath sounds equal bilaterally. GASTROINTESTINAL: Abdomen soft, non-tender, nondistended. Normoactive bowel sounds x4. MUSCULOSKELETAL: No obvious deformities. Extremities without clubbing, cyanosis , or edema. Distal lumbar spine with tenderness to palpation at L4-5 region and at left paraspinous muscles. NEUROLOGICAL: Awake and alert. No obvious cranial nerve deficits. Motor grossly within normal limits. 5/5 strength of bilateral upper and lower extremities. Distal lower extremity sensation equal and intact. Normal speech. PSYCHIATRIC: Appropriate mood and affect; insight and judgment normal. Results - Labs CBC & Chem 7: 02/11/18 08:35 02/11/18 08:35 Laboratory Results - last 24 hr 02/11/18 02/11/18 08:35 08:35 WBC 10.1 RBC 3.80 L Hgb 11.3 L Hct 34.1 L MCV 89.7 MCH 29.8 MCHC 33.2 RDW 14.3 Plt Count 311 MPV 7.9 Neut % (Auto) 45.5 Lymph % (Auto) 44.2 H [place] % (Auto) 7.6 Eos % (Auto) 2.6 Baso % (Auto) 0.1 Neut # (Auto) 4.6 Lymph # (Auto) 4.5 [place] # (Auto) 0.8 Eos # (Auto) 0.3 Baso # (Auto) 0.0 WBC Differential . Differential Comment Auto diff final Sodium 142 Potassium 4.0 Chloride 109 H Carbon Dioxide 26.8 Anion Gap 6 BUN 16 Creatinine 0.74 Estimated GFR 84 L Random Glucose 78 Calcium 8.2 L Total Bilirubin 0.3 AST 11 L ALT 21 Alkaline Phosphatase 42 L Total Protein 5.8 L D Albumin 3.0 L D Assessment and Plan - Plan 47-year-old white female with a past medical history of bipolar disorder presents on 02/10 with worsening low back pain since sustaining an injury moving furniture on 01/28. Lumbar Disc Herniation with Spinal Stenosis: acute, with intractable pain -Lumbar Spine MRI reviewed, shows Large broad-based central to slightly left paracentral focal disc herniation which results in severe spinal stenosis at this level; Small extruded fragments extending superiorly and inferiorly; There is significant impingement upon the left lateral recess and probable impingement upon the left L5 nerve root; Mild bilateral foraminal narrowing at L4-5 and L5-S1. -Pain control with [place] prn and IV morphine prn breakthrough pain, with bowel regimen -Heating pad -Neurosurgery consulted, plans for surgical intervention today 02/12 -Physical therapy consulted Bipolar disease -Continue patient's home medications including buspirone, doxepin, lamictal, lithium, trazodone Tobacco use: chronic -counseled on cessation -continue nicotine patch DVT prophylaxis: Patient is ambulatory; avoid chemoprophylaxis with upcoming surgery Discharge Planning: Going to OR today. Further disposition to follow.
[2018-02-12] MEDS ORDERED: MethylPREDNISolone Sod Succinate Inj 40 MG/ML Vial ONE (09:11)
[2018-02-12] MEDS ORDERED: Morphine Inj 4 MG/ML Vial ONE (09:11)
[2018-02-12] MEDS ORDERED: Bisacodyl 10 MG Supp RECTAL PRN (11:06)
--- NOTE | 2018-02-12 11:14 | P.OP ---
- Preoperative Diagnosis (1) Lumbar disc herniation - Postoperative Diagnosis (1) Lumbar disc herniation Date of procedure: 02/12/18 Procedure: Left L4-5 hemilaminectomy, mesiofacetectomy, foraminotomy, microsurgical resection of the disk Surgeon: García Pina MD Medical Referral Coordinator: Hansa Hines Pathology: none sent Operation and Findings: INDICATIONS FOR THE SURGICAL PROCEDURE Ms Albrecht is a 47 year-old female who presented with intractable mechanical back pain and clinical evidence of lower extremity radiculopathy. The patient was found to have a large disk herniation with a large extrusion causing significant stenosis with significant mass effect on the neural structures which correlated with the clinical symptoms. She was unable to ambulate. The patient has failed nonsurgical management. A surgical decompression were indicated as a last resort. The [id number] details of the procedure, indications, alternatives, risks and potential complications were fully discussed with the patient. The patient fully understood. All the questions were answered. No guarantees were given. The patient voiced requesting the procedure and signed informed consents. The patient was offered the alternative of delaying the procedure and continuing with nonsurgical management. DETAILS OF THE SURGICAL PROCEDURE After the induction of general anesthesia, endotracheal intubation was performed. A Silva catheter, bilateral ELAN hose and sequential compression devices were placed and kept throughout the procedure. The patient was positioned prone on a Pramod table over a Alek frame. All pressure points were carefully padded with eggcrate mattress. The eyes were tapped shut after ointment was applied by the anesthesiologist to prevent corneal abrasion. A Fran hugger was placed over the exposed lower body to maintain control of the core body temperature. The lower lumbar region was prepped and draped in the usual sterile fashion. A spinal needle was placed for localization and an x- ray performed with a C-arm. A skin incision was made in the midline over the spinous processes L4-5 with a # 10 blade. Small subcutaneous bleeders were controlled with a bipolar and the dissection was carried out through the lumbar fascia exposing the spinous processes. A subperiosteal dissection was performed with a Ramírez elevator and a Bovie over the L4-5 spinous process lamina and facets. A microdiscectomy self- retaining retractor was placed on the incision and an x-ray was obtained with an instrument placed underneath the lamina. At this point in the procedure the operating microscope was draped in the usual sterile fashion and brought to the field. The rest of the surgical procedure was performed using microsurgical dissection technique with exception of the closure. Once the level was confirmed, a decompressive laminectomy was performed at L4-5 on the left side using the TPS drill with a 4mm drill bit. A medial facetectomy was performed and the superior free border of the ligamentum flavum was dissected with a ligament dissector and removed with a thin footplate 2 mm [place] The medial facetectomy allowed me to expose the L5 nerve root, which was identified and followed towards its exit in the foramen. Epidural veins located laterally to the dural sac were coagulated with a bipolar and incised with microscissors. Gentle medial retraction of the dural sac allowed inspection of the disc space. The patient had a disc herniation with an extrusion, causing mass effect over the exiting nerve root. The annulus fibrosus of the disc was coagulated with the bipolar and incised with an 11 blade. The extruded disc was carefully dissected from the surrounding tissue and removed with pituitary forceps. Then, a microdiscectomy was carried out in the standard fashion using straight and up-biting pituitary forceps. A good decompression of the dural sac and nerve root was achieved. The exit of the nerve root was inspected for residual disc fragments and hemostasis was secured with the bipolar. The incision was irrigated with a large amount of saline solution. A Valsalva maneuver failed to show any cerebrospinal fluid leak or bleeding. The decompression was assessed again and found to be satisfactory. The incision was then closed in layers. The fascia was closed with 0 Vicryl sutures in an interrupted fashion. The superficial fascia was closed with 0 Vicryl sutures. The fascia was infiltrated with 0.5% Marcaine with epinephrine 1:100,000 dilution. The subcutaneous tissue was irrigated then closed with 0 Vicryl and 3 -0 Vicryl. The skin was closed with 4-0 running subcuticular Vicryl. Dermabond was applied to the skin. A sterile dressing was applied. At the end of the procedure, the sponge, needle and instrument counts were all correct. Estimated blood loss was less than 30 cc. No blood transfusion was given. No intraoperative complications occurred. The patient received prophylactic antibiotics. The patient was then extubated and transferred to the recovery room in stable condition.
--- NOTE | 2018-02-12 11:41 | XR ---
EXAM DATE: 02/12/2018 11:32 AM EDT AGE/SEX: 47 years / Female INDICATIONS: L4-L5 hemilaminectomy. Level localization. CLINICAL DATA: This is the patient's subsequent encounter. Patient reports that signs and symptoms h ave been present for 1 day and indicates a pain score of Nonresponsive. MEDICAL/SURGICAL HISTORY: Non-responsive. Non-responsive. COMPARISON: No prior exams available for comparison. FINDINGS: A single crosstable lateral view of the lower lumbar spine was obtained intraoperatively. This demons trates posterior spinal retractors in place posterior to the L4-5 level as well as a metallic probe l ocated posterior to the L5 vertebral body. Degenerative disc changes are present at the L5-S1 level w ith disc space narrowing and hypertrophic change. The study is labeled assuming 5 nonrib-bearing lumb ar-type vertebra. CONCLUSION: Limited localization study as described. Electronically signed by: Dillon Coyne MD 02/12/2018 11:40 AM EDT
[2018-02-12] MEDS ORDERED: Glycopyrrolate Inj 1 MG/5 ML Syringe IV.PUSH ONE (12:00)
[2018-02-12] MEDS ORDERED: Neostigmine Inj 5 MG/5 ML Syringe IV.PUSH ONE (12:00)
[2018-02-12] MEDS ORDERED: *morphine SULFATE 4 MG/ML PERIprocedure ONLY ONE (12:31)
[2018-02-12] MEDS: lamoTRIgine 25 MG TABLET PO SCH (22:24)
[2018-02-12] MEDS: traZODone 100 MG Tablet PO SCH (22:24)
[2018-02-13 08:43] VITALS: BP 101/58; PULSE 50; RESP 16; TEMP 98.6; O2SAT 99
[2018-02-13] MEDS: Famotidine 20 MG Tablet PO SCH (08:59)
[2018-02-13] MEDS: Senna/Docusate Sodium 8.6/50 MG Tablet PO SCH (10:57)
--- NOTE | 2018-02-13 11:34 | P.DS ---
Date of admission: 02/10/18 16:20 Primary care physician: UNKNOWN Brief History from admission: Patient is a 47-year-old female who presents the emergency room with complaints of back pain. Her only significant medical history is bipolar disorder. Patient reports that she hurt her back on January 28 while moving furniture in a house. She was seen in the emergency room on February 01, 2018. She went to her primary care provider due to the fact that the pain was not improving and he directed her to the emergency room. She reports increasing level pain over the past 4 days as well as numbness in her left leg and foot. She also had an episode of urinary incontinence today - she has never had incontinence in the past. She was aware that she needed to empty her bladder however she did not make it to the bathroom in time. No other episodes of incontinence. Denies any chest pain or shortness of breath. Denies any nausea vomiting or diarrhea. She is hungry and would like to have something to eat. Reports other than the one episode of incontinence she has had normal urination and normal bowel movements. DS: Medications - Discharge Medications Prescriptions: tramadol [Ultram] 50 mg PO Q6H PRN #28 tab PRN Reason: Pain 3 to 10 DS: Summary Hospital Course: Mrs. Albrecht is a 47-year-old female. She was admitted after having a back injury while moving. She had nerve impingement at L4/L5 which was severe. Neurosurgery was consulted and surgical interventions were performed. She had a left L4-5 hemilaminectomy, mesiofacetectomy, foraminotomy, microsurgical resection of the disk. Postop the patient is doing well. Pain is resolved. She has some residual numbness at the left foot which should improve through time. Medically she stable and cleared for discharge after neurosurgery clears this patient. - Time Spent with Patient Total time spent providing and/or coordinating discharge services: - Quality: VTE Deep Vein Thrombosis/Pulmonary Embolism Present on Admission: No Exam Vital signs: Vital Signs 02/12/18 11:41 02/12/18 11:45 02/12/18 12:00 Temperature 97.5 F L Pulse Rate 7 L 64 50 L Respiratory Rate 16 16 16 Blood Pressure 110/62 107/62 100/60 Pulse Oximetry 100 100 100 02/12/18 12:15 02/12/18 13:46 02/12/18 14:08 Temperature Pulse Rate 56 L 71 Respiratory Rate 16 16 16 Blood Pressure 113/59 L 115/58 L Pulse Oximetry 100 100 02/12/18 16:00 02/12/18 20:00 02/12/18 22:25 Temperature 97.4 F L 98.2 F Pulse Rate 52 L 51 L Respiratory Rate 20 6 L 6 L Blood Pressure 116/60 97/54 L Pulse Oximetry 100 98 02/13/18 04:00 02/13/18 08:00 02/13/18 08:43 Temperature 98 F 98.6 F Pulse Rate 48 L 50 L Respiratory Rate 18 16 16 Blood Pressure 95/49 L 101/58 L Pulse Oximetry 100 99 Intake & Output 02/12/18 02/13/18 02/13/18 18:59 06:59 18:59 Intake Total 1550 / 1550 100 / 100 Output Total 450 / 450 Balance 1100 / 1100 100 / 100 Weight 45.4 kg Intake: IV 100 / 100 100 / 100 Ancef Inj 1,000 MG In NS Inj 100 / 100 100 / 100 100 ML @ 200 mls/hr IV.SIG Q8H [facility] Rx#:[id number] Oral 100 / 100 Anesthesia Amount 1100 / 1100 Other 250 / 250 Output: Urine 450 / 450 Other: # Voids 2 1 # Urine Diapers 2 Results Procedures completed during hospitalization: Left L4-5 hemilaminectomy, mesiofacetectomy, foraminotomy, microsurgical resection of the disk - Impressions ITS Impressions Chest X-Ray 02/10/18 00:00 CONCLUSION: No acute cardiopulmonary disease. Lumbar Spine MRI 02/10/18 11:45 CONCLUSION: 1. Large broad-based central to slightly left paracentral focal disc herniation which results in severe spinal stenosis at this level. Small extruded fragments extending superiorly and inferiorly. There is significant impingement upon the left lateral recess and probable impingement upon the left L5 nerve root. 2. Mild bilateral foraminal narrowing at L4-5 and L5-S1. 3. Degenerative disc disease at L4-5 and L5-S1 and to a lesser extent at L2-3. Lumbar Spine X-Ray 02/12/18 00:00 CONCLUSION: Limited localization study as described. Discharge Plan - Discharge Disposition Patient Disposition: Discharge Home - Discharge Condition Condition: Stable - Discharge Order Discharge Orders: Discharge Order (Routine); Ordered 02/13/18 Ordered By: Micah Tran - Discharge Details Anticipated Discharge Date: 02/13/18 - Physicians Team Primary Care Provider: UNKNOWN, Attending Provider: Micah Tran Other Providers: García Pina MD ; Fariha Fried
--- NOTE | 2018-02-13 11:55 | P.PNNS ---
Subjective Interval history: 02/13: POD 1 Left L4-5 hemilaminectomy, mesiofacetectomy, foraminotomy, microsurgical resection of the disk. doing well, reports improvement of radicular pain, has residual paresthesias. Physical Exam Vital signs: Vital Signs 02/12/18 12:00 02/12/18 12:15 02/12/18 13:46 Temperature Pulse Rate 50 L 56 L 71 Respiratory Rate 16 16 16 Blood Pressure 100/60 113/59 L 115/58 L Pulse Oximetry 100 100 100 02/12/18 14:08 02/12/18 16:00 02/12/18 20:00 Temperature 97.4 F L 98.2 F Pulse Rate 52 L 51 L Respiratory Rate 16 20 6 L Blood Pressure 116/60 97/54 L Pulse Oximetry 100 98 02/12/18 22:25 02/13/18 04:00 02/13/18 08:00 Temperature 98 F Pulse Rate 48 L Respiratory Rate 6 L 18 16 Blood Pressure 95/49 L Pulse Oximetry 100 02/13/18 08:43 Temperature 98.6 F Pulse Rate 50 L Respiratory Rate 16 Blood Pressure 101/58 L Pulse Oximetry 99 Intake & Output 02/12/18 02/13/18 02/13/18 18:59 06:59 18:59 Intake Total 1550 / 1550 100 / 100 Output Total 450 / 450 Balance 1100 / 1100 100 / 100 Weight 45.4 kg Intake: IV 100 / 100 100 / 100 Ancef Inj 1,000 MG In NS Inj 100 / 100 100 / 100 100 ML @ 200 mls/hr IV.SIG Q8H [facility] Rx#:[id number] Oral 100 / 100 Anesthesia Amount 1100 / 1100 Other 250 / 250 Output: Urine 450 / 450 Other: # Voids 2 1 # Urine Diapers 2 Narrative: Awake, alert NAD speech fluent Assessment and Plan - Assessment (1) Lumbar disc herniation Code(s): M51.26 - Other intervertebral disc displacement, lumbar region Status : Acute - Plan POD 1 s/p Left L4-5 hemilaminectomy, mesiofacetectomy, foraminotomy, microsurgical resection of the disk doing well, improved radicular pain Plan: clear to dc from NRS standpoint f/u in 1 week in office dw patient activity restrictions and wound care
== END 2018-02-13 12:36 | disposition home or self-care (01) ==
LOC: NEDA 11:19 → N05 11:19 → NEPD 11:19 → NEPHCDU 17:36 → N05 02-12 09:00
PROVIDERS: ADMIT Hospitalist; ATTEND Hospitalist
DX: M51.16 Intervertebral disc disorders with radiculopathy, lumbar region; X50.0XXA Overexertion from strenuous movement or load, initial encounter; M48.061 Spinal stenosis, lumbar region without neurogenic claudication; M79.662 Pain in left lower leg; R06.00 Dyspnea, unspecified; Z98.51 Tubal ligation status; F31.9 Bipolar disorder, unspecified; R32 Unspecified urinary incontinence; F17.210 Nicotine dependence, cigarettes, uncomplicated; R20.2 Paresthesia of skin; R20.0 Anesthesia of skin